=== PATIENT | male | born 1955 | race Caucasian/White ===

== ENCOUNTER 2017-05-22 03:38 | Emergency (ER) | payer MEDICARE, MEDICAID, SELFPAY ==
[2017-05-22 03:39] VITALS: RESP 25; O2SAT 90; BMI 12.5
--- NOTE | 2017-05-22 03:40 | XR_ITS ---
XR chest portable Ordering Physician: Virgil Sepulveda MD Patient Age: 62 years: Male HISTORY: ITS.REASON: dyspnea Respiratory arrest. ET tube placement. TECHNIQUE: AP supine portable chest. 2 images submitted. COMPARISON :Previous chest film 01/28/2007 FINDINGS ET tube in place and appears to be in satisfactory position with tip 22 mm above lali. . Advanced COPD changes bilaterally with interstitial fibrotic changes throughout majority the lungs are and some hyperlucency at the apices. The heart is normal size. Rosalva and mediastinal structures satisfactory. Monitoring/ and likely AED device overlying heart generous gas at stomach beneath left hemidiaphragm noted. No pneumothorax. No effusion. No focal pneumonia. IMPRESSION: . ET tube in place & appears be satisfactory position COPD. . No acute pulmonary findings
--- NOTE | 2017-05-22 03:55 | [facility]H.EDAMS ---
ED Disposition Clinical Impression: NSTEMI (non-ST elevated myocardial infarction), Dehydration, Anorexia, Hyperkalemia, Hypernatremia, Metabolic acidosis, Lactic acidemia, Cachexia Rhabdomyolysis Qualifiers: Rhabdomyolysis type: non-traumatic Qualified Code(s): M62.82 - Rhabdomyolysis Mental status change Qualifiers: Altered mental status type: coma Coma depth: Yani coma 3-8 Coma timing: in the field (EMT or ambulance) Qualified Code(s): R40.2431 - Yani coma scale score 3-8, in the field [EMT or ambulance] Acute renal failure Qualifiers: Acute renal failure type: unspecified Qualified Code(s): N17.9 - Acute kidney failure, unspecified Hypothermia Qualifiers: Encounter type: initial encounter Qualified Code(s): T68.XXXA - Hypothermia, initial encounter Respiratory failure Qualifiers: Chronicity: acute Respiratory failure complication: hypoxia Qualified Code(s): J96.01 - Acute respiratory failure with hypoxia Disposition: Condition on Discharge: Time of Disposition: 05:00 - Critical Care Critical Care Time: Yes Attestation: On 05/22/17, the high probability of a clinically significant, sudden or life threatening deterioration of the following system(s) required my full and direct attention, intervention and personal management. The time I documented below is in addition to time spent performing reported procedures but includes the following listed in this critical care notation. Total Critical Care Time: 45 Vital system(s) involved:: Circulatory Failure, Metabolic Failure, Respiratory Failure, Renal Failure My critical care processes included: Assessment & monitoring of V/S, Initial and Re-exams, Data Review/Interpretation, Coordinating Care, Medication Orders and management, Documentation Probable Cause of : Cardiac arrest (secondary to NSTEMI) Medical Decision Making - Medical Records Medical records reviewed: Yes: I reviewed the patient's medical records. Vital Signs: 05/22/17 03:39 05/22/17 04:04 05/22/17 07:41 Temperature 91.7 F L Temperature Source Rectal Respiratory Rate 25 H 02 Sat by Pulse Oximetry 90 L Oxygen Delivery Method Ambu-Bag - Lab Data Lab results reviewed: Yes: I reviewed the patient's lab results. Lab Results 05/22/17 03:40: WBC 21.0 H*, RBC 7.05 H, Hgb 20.1 H*, Hct 65.0 H*, MCV 92.2, MCH 28.4, MCHC 30.8 L, RDW 14.9, Plt Count 115 L, MPV 12.7 H, Neut % (Auto) 89.4 H, Lymph % (Auto) 5.7 L, Atlantic % (Auto) 4.1, Eos % (Auto) 0.4, Baso % (Auto) 0.5, Neut # (Auto) 18.8 H, Lymph # (Auto) 1.2, Atlantic # (Auto) 0.9, Eos # (Auto) 0.1, Baso # (Auto) 0.1, Total Counted 100, Neutrophils % (Manual) 77 H, Band Neutrophils % 17.0 H, Lymphocytes % (Manual) 6 L, Platelet Estimate Slight decrease, RBC Morphology Not Reportable, Hypochromasia 1+, Macrocytosis 1+ 05/22/17 03:40: Sodium 156 H*, Potassium 6.6 H*, Chloride 111 H, Carbon Dioxide 19 L, Anion Gap 32.6 H, BUN 189 H*, Creatinine 6.73 H, Estimated Creat Clear 6, Estimated GFR 8 L*, Est GFR ( Amer) 10 L*, Glucose 105, Calcium 9.8, Total Bilirubin 1.6 H, AST 113 H, ALT 102 H, Alkaline Phosphatase 181 H, Total Creatine Kinase 693 H*, CK-MB (CK-2) 9.0 H*, CK-MB (CK-2) Rel Index 1.3, Troponin I 4.34 H, Total Protein 8.1, Albumin 3.4, Globulin 4.7 H, Albumin/Globulin Ratio 0.7 L, Amylase 111 05/22/17 03:40: Lactic Acid 7.8 H 05/22/17 03:40: Lipase 193 05/22/17 03:45: O2 % 100%, ABG pH 7.11 L*, ABG pCO2 50.2 H, ABG pO2 26.0 L, ABG HCO3 15.6 L, ABG Total CO2 17.1 L, ABG O2 Saturation 23 L*, ABG Base Excess -14.0 L, Quentin Test Patient unable 05/22/17 03:55: POC Glucose 70 Result diagrams: 05/22/17 03:40 05/22/17 03:40 Orders (Tests/Meds): ED MEDICATIONS Discontinued Medications Generic Name Dose Route Start Last Admin Trade Name Freq PRN Reason Stop Dose Admin Dextrose 50 ml 05/22/17 04:37 Dextrose 50% 50ml Syringe IVP 05/22/17 04:38 ONCE ONE Lactated Ringer's 1,000 mls @ 999 mls/h
[2017-05-22 04:04] VITALS: TEMP 33.2
[2017-05-22 04:24] LABS: Basophils # 0.1 K/mm3 (0-0.2); Basophils % 0.5 % (0.1-2.0); Eosinophils # 0.1 K/mm3 (0.0-0.4); Eosinophils % 0.4 % (0.1-12.0); Lymphocytes # 1.2 K/mm3 (0.7-4.5); Lymphocytes % 5.7 K/mm3 (10-50); Mean Corpuscular HGB Conc 30.8 g/dL (31.8-35.4); Mean Corpuscular Hemoglobin 28.4 pg (27.0-31.2); Mean Corpuscular Volume 92.2 fl (80-94); Mean Platelet Volume 12.7 fl (7.4-10.4); Monocytes # 0.9 K/mm3 (0.1-1.0); Monocytes % 4.1 % (1.7-9.3); Neutrophils # 18.8 K/mm3 (1.8-7.8); Neutrophils % 89.4 % (37.0-80.0); Platelet Count 115 K/mm3 (142-424); Red Cell Distribution Width 14.9 % (11.5-17.5)
[2017-05-22 04:30] LABS: Red Blood Count 7.05 M/mm3 (4.60-6.20)
[2017-05-22 04:33] LABS: Hemoglobin 20.1 g/dL (14.1-18.0)
[2017-05-22 04:35] LABS: MANUAL DIFFERENTIAL MANUAL DIFFERENTIAL (MANUAL DIFF)
[2017-05-22 04:45] LABS: Lactic Acid 7.8 mmol/L (0.4-2.0)
--- NOTE | 2017-05-22 04:46 | PC.NURSE ---
VERBALLY REPORTED CRITICAL LACTIC ACID OF 7.8 AND CRITICAL TROPONIN OF 4.[address] WANG
[2017-05-22 04:57] LABS: Alanine Aminotransferase 102 U/L (12-78); Albumin Level 3.4 gm/dL (3.4-5.0); Albumin/Globulin Ratio 0.7 (1.1-1.8); Alkaline Phosphatase 181 U/L (46-116); Amylase 111 U/L (25-125); Anion Gap 32.6 mEq/L (5-15); Aspartate Amino Transferase 113 U/L (15-37); Bilirubin,Total 1.6 mg/dL (0.2-1.0); CKMB Relative Index 1.3 U/L (0-4.0); Calcium 9.8 mg/dL (8.5-10.1); Carbon Dioxide 19 mmol/L (21.0-32.0); Chloride 111 mmol/L (98-107); Creatinine Clearance Estimated 6 mL/min (0-300); Globulin 4.7 gm/dl (1.3-3.2); Glucose 105 mg/dL (74-106); Total Protein,Serum 8.1 gm/dL (6.4-8.2)
[2017-05-22 05:01] LABS: Troponin I 4.34 ng/ml (0.00-0.06)
[2017-05-22 05:02] LABS: Creatinine,Serum 6.73 mg/dL (0.70-1.30)
--- NOTE | 2017-05-22 05:02 | PC.NURSE ---
VERBALLY REPORTED CRITICAL CPK 693 AND CRITICAL MB 9.[address] WANG
[2017-05-22 05:03] LABS: Creatine Kinase 693 U/L (39-308)
[2017-05-22 05:04] LABS: Potassium 6.6 mmoL/L (3.5-5.1); Sodium 156 mmol/L (136-145)
[2017-05-22 05:05] LABS: Blood Urea Nitrogen 189 mg/dL (7-18); Estimated Glomerular Filt Rate 8 ml/min (>60); GFR (African American) 10 ML/MIN (>60)
--- NOTE | 2017-05-22 05:06 | PC.NURSE ---
0417 CPR STARTED 0418 EPI GIVEN 0419 AMP BICARB 0420 ASYSTOLE, RESUME CPR 0422 EPI 0424 ASYSTOLE, RESUME CPR 0426 EPI, CXR COMPLETED 0428 PEA, RESUME CPR 0430 EPI 0433 FEMORAL DOPPLER SHOWS NO PULSE, RESUME CPR 0435 EPI 0436 AMP BICARB 0438 AMP CALCIUM 0441 EPI 0443 AMP D50 0445 10 UNITS INSULIN IV 0446 EPI 0447 PULSE RETURNED 0449 RESUMED CPR 0458 EPI 0459 PEA 0502 DOPAMINE STARTED, EPI GIVEN 0504 TIME OF
[2017-05-22 05:15] LABS: Lipase 193 u/L (73-393)
--- NOTE | 2017-05-22 05:15 | PC.NURSE ---
FAMILY AT BEDSIDE
[2017-05-22 05:22] LABS: Hypochromasia 1+; Lymphocytes % 6 % (10-50); Macrocytosis 1+; Neutrophils % 77 % (42-76); Platelet Estimate Slight Decrease; Total Cells Counted 100
--- NOTE | 2017-05-22 05:34 | PC.NURSE ---
ON THE PHONE WITH PERLA FLOREZ FROM [email or web address]. PT HAS BEEN RULED OUT FOR DONATION. .
--- NOTE | 2017-05-22 05:35 | PC.NURSE ---
CALLED [employer] AND REPORTED
--- NOTE | 2017-05-22 07:45 | PC.NURSE ---
CALLED [facility] TO REPORT PT LIVING CONDITIONS DUE TO PT HAVING A DISABLED SON LIVING IN SAME CONDITIONS. ADVISED THEM OF PT'S MALNUTRITION AND NEGLECT WELL BED BUG INFESTATION. WAS GIVEN THE WEB PORTAL ID #[id number] AND [employer] # [id number].
[2017-05-22 08:04] LABS: Reflex Lactic No Lactic Reflex
[2017-05-22 10:29] LABS: ABG HCO3 15.6 mmhg (22.0-26.0); ABG Oxygen Saturation 23 % (90-100); ABG TCO2 17.1 mmhg (23-27); Oxygen 100% %
[2017-05-22 10:30] LABS: Allen's Test Patient Unable
[2017-05-22 10:31] LABS: ABG PCO2 50.2 mmhg (35.0-45.0); ABG PH 7.11 mmol/L (7.35-7.45)
[2017-05-22 12:20] LABS: POC Glucose,Bedside 70 mg/dL
== END 2017-05-22 07:00 | disposition expired ==
PROVIDERS: Emergency Provider Emergency Medicine; Family Provider Family Medicine; PCP Family Medicine
DX: I21.4 Non-ST elevation (NSTEMI) myocardial infarction (principal); J96.01 Acute respiratory failure with hypoxia; R68.0 Hypothermia, not associated with low environmental temperature; M62.82 Rhabdomyolysis; E86.0 Dehydration; E87.5 Hyperkalemia; E87.0 Hyperosmolality and hypernatremia; E87.2 Acidosis; R64 Cachexia; R40.2431 Glasgow coma scale score 3-8, in the field [EMT or ambulance]; N17.9 Acute kidney failure, unspecified; C80.1 Malignant (primary) neoplasm, unspecified; C79.51 Secondary malignant neoplasm of bone
CPT/HCPCS: 31500; 94002; 71045; 80053; 82150; 82550; 82553; 82803; 82962; 83605; 83690; 84484; 85007; 85025; 92950; 93005; 93041; 96365; 96366; 96367; 96374; 96375; 99291